=== PATIENT | male | born 2000 | race American Indian/Alaskan Native ===

== ENCOUNTER 2022-04-30 11:32 | Emergency (ER) | payer OTHER ==
[2022-04-30] MEDS ORDERED: Sodium Chloride 0.9% 2.5 ML Syringe FLUSH PRN (11:51)
[2022-04-30] MEDS ORDERED: Sodium Chloride 0.9% 10 ML Syringe FLUSH PRN (11:51)
[2022-04-30 12:25] LABS: POTASSIUM,K 3.5 mmol/L (3.5-5.1)
[2022-04-30 12:48] LABS: CORONAVIRUS COVID-19 NAA NEGATIVE (NEGATIVE); INFLUENZA A NAA NEGATIVE (NEGATIVE); INFLUENZA B NAA NEGATIVE (NEGATIVE)
== END 2022-04-30 13:00 | disposition home or self-care (01) ==
LOC: MW.ED 11:32
DX: R07.89 Other chest pain (principal); Z20.822 Contact with and (suspected) exposure to COVID-19
CPT/HCPCS: 0240U; 36415; 71046; 80053; 84484; 85025; 93005; 99285; J3490

== ENCOUNTER 2022-09-10 02:14 | Emergency (ER) | payer OTHER ==
[2022-09-10] MEDS ORDERED: Ibuprofen 600 MG Tab PO ONE (02:31)
[2022-09-10] MEDS ORDERED: Acetaminophen 500 MG Tab PO ONE (02:31)
== END 2022-09-10 03:51 | disposition home or self-care (01) ==
LOC: MW.ED 02:14
DX: S06.0X9A Concussion with loss of consciousness of unspecified duration, initial encounter (principal); V43.52XA Car driver injured in collision with other type car in traffic accident, initial encounter; Y92.410 Unspecified street and highway as the place of occurrence of the external cause
CPT/HCPCS: 70450; 99284; A9270

== ENCOUNTER 2023-11-17 13:19 | Emergency (ER) | payer OTHER ==
[2023-11-17] MEDS: Lidocaine 1% PF 2 ML SDV INJECT ONE (14:53)
[2023-11-17] MEDS: Sulfamethoxazole/Trimethoprim 800-160 MG Tab PO ONE (14:53)
== END 2023-11-17 14:58 | disposition home or self-care (01) ==
LOC: MW.ED 13:19
DX: L02.11 Cutaneous abscess of neck (principal); F17.210 Nicotine dependence, cigarettes, uncomplicated; Z79.899 Other long term (current) drug therapy; Z86.16 Personal history of COVID-19; Z75.8 Other problems related to medical facilities and other health care
CPT/HCPCS: 10060; 99282; A9270; 99283; J3490

== ENCOUNTER 2024-05-31 13:37 | Emergency (ER) | payer OTHER ==
[2024-05-31] MEDS: Acetaminophen 500 MG Tab PO ONE (14:10)
== END 2024-05-31 15:03 | disposition home or self-care (01) ==
LOC: MW.ED 13:37
DX: J02.0 Streptococcal pharyngitis (principal)
CPT/HCPCS: 87651; 99283; A9270